=== PATIENT | female | born 1965 | race Caucasian/White ===

== ENCOUNTER → 2016-03-09 | Outpatient (CLI) | payer BC ==
--- NOTE | 2016-03-09 15:46 | MAMMOGRAPHY REPORT ---
UNILATERAL RIGHT DIGITAL DIAGNOSTIC MAMMOGRAM TOMOSYNTHESIS WITH CAD AND TARGETED RIGHT ULTRASOUND: 03/09/2016 CLINICAL HISTORY: 50-year-old female presents for follow-up of a benign-appearing 1.4 cm mass in the 6:00 far posterior right breast. TECHNIQUE: Right breast tomosynthesis in addition to standard 2D mammography was performed. Current study was also evaluated with a Computer Aided Detection (CAD) system. COMPARISON: Comparison is made to exams dated: 09/05/2015 mammogram, 09/05/2015 ultrasound, 09/01/2015 mammogram, 08/22/2014 mammogram, and 04/25/2012 mammogram - [facility]. BREAST COMPOSITION: There are scattered areas of fibroglandular density in the right breast. FINDINGS: The right breast parenchymal pattern is similar to prior exams. There are benign appeari ng calcifications stable in the breast. There is persistence of a lobulated and circumscribed 1.4 c m mass in the far posterior 6:00 right breast. When comparing to prior available mammograms, this w as present dating back to 06/05/2013 but may be slightly larger. Additional evaluation with ultraso und was performed. No new suspicious mass, architectural distortion or cluster of microcalcificatio ns is seen. Real-time high-resolution sonographic evaluation was performed in the 6:00 right breast, 6 cm from t he nipple. An anechoic elongated circumscribed mass is again identified measuring 6.1 x 2.9 x 11.9 mm. This could represent a fibroadenoma or complicated cyst. It has not significantly changed in s ize compared to the 09/05/2015 ultrasound. Would recommend longer stability with repeat ultrasound in 6 more months. IMPRESSION: ACR-BI-RADS CATEGORY 3: PROBABLY BENIGN, TARGETED ULTRASOUND ACR-BI-RADS CATEGORY 3: AR OBABLY BENIGN There is a stable lobulated and circumscribed mammographic mass in the far posterior 6:[address], thought to correlate with a benign-appearing solid versus cystic mass on ultrasound, measuring a pproximately 12 mm. Another short interval follow-up is recommended to ensure stability in 6 months . Annual bilateral mammography will be due at that time. These results and recommendations were discussed with the patient at the time of the exam. Approximately 10% of breast cancers are not detected with mammography. A negative mammographic repor t should not delay biopsy if a clinically suggestive mass is present. Delmy Martins M.D. ay/:03/09/2016 14:30:48 Dairy Powder Mixer Operator: Latia RODRIGUEZ(R)(M), [facility] letter sent: Follow Up Recommended 3 BI-RADS Code: ACR-BI-RADS Category 3: Probably Benign Ultrasound BI-RADS: ACR-BI-RADS Category 3: P robably Benign
== END | disposition home or self-care (01) ==
LOC: C.MAMM 07:50
PROVIDERS: ATTEND Obstetrics & Gynecology
DX: Z09 Encounter for follow-up examination after completed treatment for conditions other than malignant neoplasm (principal); N63 Unspecified lump in breast

== ENCOUNTER → 2016-04-09 | Outpatient (CLI) | payer BC | END | disposition home or self-care (01) | LOC: C.PAPS 12:08 | PROVIDERS: ATTEND Obstetrics & Gynecology | DX: Z01.419 Encounter for gynecological examination (general) (routine) without abnormal findings (principal) ==

== ENCOUNTER → 2016-08-30 | Outpatient (CLI) | payer BC ==
--- NOTE | 2016-08-30 16:06 | MAMMOGRAPHY REPORT ---
BILATERAL DIGITAL DIAGNOSTIC MAMMOGRAM TOMOSYNTHESIS WITH CAD AND TARGETED RIGHT ULTRASOUND: 7 CLINICAL HISTORY: 1 year follow-up of a probably benign lobulated and circumscribed 12 mm oval mass i n the far posterior 6:00 right breast. Annual bilateral screening exam. TECHNIQUE: Bilateral CC and MLO to the digital and tomosynthesis images, spot compression tomosynthe sis right CC and MLO views were obtained. Current study was also evaluated with a Computer Aided Det ection (CAD) system. COMPARISON: Comparison is made to exams dated: 03/09/2016 mammogram, 03/09/2016 ultrasound, 09/05/2015 mammogram, 09/05/2015 ultrasound, 09/01/2015 mammogram, and 08/22/2014 mammogram - [facility]. BREAST COMPOSITION: There are scattered areas of fibroglandular density in both breasts. FINDINGS: The breast bregma pattern is similar to prior mammograms. There are stable grouped benign- appearing microcalcifications in the left upper outer middle one third of the breast. The previously described lobulated and circumscribed 13 x 7 mm oval mass in the far posterior 6:00 right breast is not identified on the full field CC and MLO views. Therefore additional spot compression views in th e 6:00 axis to include more posterior tissue were obtained. These also fail to demonstrate the lobul ated and circumscribed mammographic mass. No other new suspicious mass, architectural distortion or suspicious microcalcifications are seen throughout the remainder of the right breast or within the le ft breast. Targeted ultrasound was performed in the inferior right breast. Incidental note is made of an echoge yared superficial parallel mass in the 8:00 right breast, 12 cm from the nipple, most compatible with a benign lipoma. This measures 13.6 x 5.6 x 8.8 mm. There is a nearly anechoic cystic mass versus no rmal breast tissue in the 6:00 periareolar right breast measuring 3.6 x 3.9 x 5.2 mm. No other discr ete solid or cystic mass is seen throughout the inferior right breast on ultrasound. IMPRESSION: ACR-BI-RADS CATEGORY 3: PROBABLY BENIGN, TARGETED ULTRASOUND ACR-BI-RADS CATEGORY 3: PRO BABLY BENIGN 1. A lobulated and circumscribed 13 x 7 mm mass in the far posterior 6:00 right breast is no longer seen mammographically. No definite sonographic correlate is currently seen. This could have represe nted a fluctuating cyst, but another short interval follow-up diagnostic right mammogram to include p osterior tissue and possible repeat ultrasound is recommended in 6 months. 2. Incidental note is made of a benign lipoma in the 8:00 right breast, measuring 13 mm. 3. There is a benign appearing cystic 5.2 mm mass versus normal breast tissue in the 6:00 periareola r right breast for which a repeat targeted ultrasound is recommended in 6 months. These results and recommendations were discussed with the patient at the time of the exam. She tenta tively scheduled a follow-up appointment prior to leaving our department. Approximately 10% of breast cancers are not detected with mammography. A negative mammographic report should not delay biopsy if a clinically suggestive mass is present. Delmy Martins M.D. ay/:08/30/2016 14:33:05 Lobsterman: Lianne BARFIELD)(Edenilson), [facility] letter sent: Follow Up Recommended 3 BI-RADS Code: ACR-BI-RADS Category 3: Probably Benign Ultrasound BI-RADS: ACR-BI-RADS Category 3: Pr obably Benign
== END | disposition home or self-care (01) ==
LOC: C.MAMM 13:42
PROVIDERS: ATTEND Obstetrics & Gynecology
DX: Z12.31 Encounter for screening mammogram for malignant neoplasm of breast (principal); D17.79 Benign lipomatous neoplasm of other sites; N63 Unspecified lump in breast

== ENCOUNTER → 2017-03-02 | Outpatient (CLI) | payer OTHER ==
--- NOTE | 2017-03-02 15:31 | MAMMOGRAPHY REPORT ---
UNILATERAL RIGHT DIGITAL DIAGNOSTIC MAMMOGRAM TOMOSYNTHESIS WITH CAD AND TARGETED RIGHT ULTRASOUND: CLINICAL HISTORY: 51-year-old woman presents for follow-up in the right breast for a 13 x 7 mm partia lly circumscribed mass in the far posterior breast, best seen on the CC view, and also a benign appea ring sonographic finding in the 6:00 periareolar right breast on ultrasound. TECHNIQUE: Br right breast east tomosynthesis in addition to standard 2D mammography was performed. Current study was also evaluated with a Computer Aided Detection (CAD) system. COMPARISON: Comparison is made to exams dated: 08/30/2016 ultrasound, 08/30/2016 mammogram, 03/09/2016 mammogram, 09/05/2015 mammogram, 09/01/2015 mammogram, and 08/22/2014 mammogram - [facility]. BREAST COMPOSITION: There are scattered areas of fibroglandular density in the right breast. FINDINGS: Pectoralis muscle is visualized on the right CC 2-D and tomosynthesis images, proving gladis r visualization of more posterior tissues than on all available prior mammograms. With this in mind, the lobulated 13 x 7 mm mass in the far posterior right breast is no longer identified. This confir ms benignity. No other suspicious masses, asymmetries, areas of architectural distortion or suspicio us calcifications are seen in the right breast. Targeted ultrasound was performed in the 6:00 periareolar right breast to reevaluate the benign-appea ring island of tissue versus benign-appearing mass identified on prior ultrasound. This is again see n. This area is hypoechoic and partially circumscribed, measuring 3.8 x 3.7 x 4.8 mm. When comparin g to the prior ultrasound prior measurements were 3.6 x 3.9 x 5.2 mm and given slight differences in measuring technique this is unchanged. However the appearance is very similar to other hypoechoic ti ssue in the 6:00 and 5:00 periareolar right breast, suggesting it represents an island of normal tiss ue. No suspicious solid mass is identified on targeted ultrasound. IMPRESSION: ACR BI-RADS CATEGORY 2: BENIGN, TARGETED ULTRASOUND ACR BI-RADS CATEGORY 2: BENIGN 1. Resolution of the 13 x 7 mm partially circumscribed mass in the posterior right breast, confirmin g benignity. 2. Stable sonographic appearance of a probable island of glandular tissue in the 6:00 periareolar ri ght breast on ultrasound, which appears similar to other hypoechoic tissue in the periareolar right b reast seen on real-time scanning. 3. There is no mammographic or targeted sonographic evidence of malignancy in the right breast. Rec jesus return to annual screening schedule, due in August 2017. Approximately 10% of breast cancers are not detected with mammography. A negative mammographic report should not delay biopsy if a clinically suggestive mass is present. Delmy Martins M.D. ay/:03/02/2017 10:47:34 Wellness Program Coordinator: Juvencio RODRIGUEZ(R)(M), [facility] letter sent: Normal 1/2 BI-RADS Code: ACR BI-RADS Category 2: Benign Ultrasound BI-RADS: ACR BI-RADS Category 2: Benign
== END | disposition home or self-care (01) ==
LOC: C.MAMM 08:14
PROVIDERS: ATTEND Obstetrics & Gynecology
DX: Z09 Encounter for follow-up examination after completed treatment for conditions other than malignant neoplasm (principal); N63.10 Unspecified lump in the right breast, unspecified quadrant